=== PATIENT | male | born 1935 | race Caucasian/White ===

== ENCOUNTER 2016-12-23 11:22 | Observation (INO) | payer MEDICARE, OTHER ==
[2016-12-23] MEDS ORDERED: Sodium Chloride 0.9% 10 ML Syringe FLUSH PRN (12:10)
--- NOTE | 2016-12-23 12:15 | EDM.PDOC ---
ED HPI GENERAL MEDICAL PROBLEM - General Chief Complaint: Gastrointestinal Problem Stated Complaint: MEDICAL EVAL PRIOR TO GOING TO [facility] Time Seen by Provider: 12/23/16 11:48 Source of Information: Reports: Patient, Family (SonRyder) History Limitations: Reports: No Limitations - History of Present Illness INITIAL COMMENTS - FREE TEXT/NARRATIVE: Patient is a 81-year-old male who presents to the ED with son Ryder for medical evaluation prior to admission to [facility]. 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 Son states patient has-been doing okay able to perform his normal activities of daily living up until approximately 2 weeks ago. Patient has quickly developed a poor appetite and became more weaker, mildly confused, and forgetful during this time. Son has been in contact with [facility] but due to patient not having any recent medical evaluation requires the ED to be medically examined. Mey with licensed clinical social worker has been involved with this process. Patient most likely be admitted to the hospital for 3 days to arrange placement. Of note patient did undergo a few radiation treatments with the determination by oncology to discontinue due to the adverse side effects and unlikeliness of curing the disease. Patient denies fever/chills, chest pain , shortness of breath, abdominal pain, dysuria, headache, numbness/tingling, unilateral weakness, or any additional complaints. Per family patient has lost considerable weight over the last 4 months and has grown increasingly weaker. It is unclear if patient has taken all his medications. Past medical history: Coronary disease, CHF, hypercholesterolemia, hypertension , [place], cerebrovascular disease, COPD, polio, diabetes type 2, and AICD/pacemaker left chest, A. fib. Current medications pravastatin, baby aspirin, enalapril, warfarin, Norvasc, glipizide, oxycodone, metoprolol, stool softener - Related Data Allergies Allergy/AdvReac Type Severity Reaction Status Date / Time No Known Allergies Allergy Verified 12/23/16 11:37 Home Meds: Home Meds Aspirin [Halfprin] 81 mg PO DAILY 04/07/15 [History] Enalapril [Vasotec] 2.5 mg PO DAILY 04/07/15 [History] Hydrochlorothiazide 25 mg PO DAILY 04/07/15 [History] Metoprolol Tartrate [Lopressor] 50 mg PO DAILY 04/07/15 [History] Pravastatin [Pravachol] 20 mg PO DAILY 04/07/15 [History] amLODIPine [Norvasc] 5 mg PO DAILY 04/07/15 [History] glipiZIDE [Glipizide Xl] 10 mg PO DAILY 04/07/15 [History] Albuterol/Ipratropium [DuoNeb 3.0-0.5 MG/3 ML] 3 ml NEB QIDRT 30 Days 04/10/15 [ Rx] Past Medical History Cardiovascular History: Reports: CAD, Heart Failure, High Cholesterol, Hypertension, [place], Other (See Below) Other Cardiovascular History: defibrillator Respiratory History: Reports: COPD Other Musculoskeletal History: has brace to R) leg--result of polio Neurological History: Reports: Other (See Below) Endocrine/Metabolic History: Reports: Diabetes, Type II Oncologic (Cancer) History: Reports: Lung - Past Surgical History Cardiovascular Surgical History: Reports: AICD Social & Family History - Tobacco Use Smoking Status *Q: Former Smoker Years of Tobacco use: 15 Used Tobacco, but Quit: No Month Tobacco Last Used: 1990 - Caffeine Use Caffeine Use: Reports: None - Alcohol Use Days Per Week of Alcohol Use: 1 Number of Drinks Per Day: 2 Total Drinks Per Week: 2 - Recreational Drug Use Recreational Drug Use: No - Living Situation & Occupation Living situation: Reports: , Other Occupation: Disabled ED ROS GENERAL - Review of Systems Review Of Systems: ROS reveals no pertinent complaints other than HPI. GI/Abdominal: Denies: Black Stool, Bloody Stool, Constipation, Diarrhea, Melena ED EXAM, GENERAL - Physical Exam Exam: See Below Exam Limited By: No Limitations General Appearance: Alert, WD/WN, No Apparent Distress, Cachetic Eye Exam: Bilateral Eye: PERRL Ears: Hearing Grossly Normal Nose: Normal Inspection Throat/Mouth: Normal Voice, No Airway Compromise, Other (dry oral mucosa) Neck: Non-Tender, Full Range of Motion. No: Lymphadenopathy (L), Lymphadenopathy (R) Respiratory/Chest: Normal Breath Sounds, No Accessory Muscle Use, Chest Non- Tender, Rhonchi, Other (right base cleared with cough) Cardiovascular: Normal Peripheral Pulses, Regular Rate, Rhythm Peripheral Pulses: 2+: Radial (L) GI/Abdominal: Normal Bowel Sounds, Soft, Non-Tender, No Organomegaly, No Distention, No Mass Back Exam: Normal Inspection Extremities: Normal Inspection, Non-Tender, No Pedal Edema, Normal Capillary Refill Neurological: Alert, Oriented, CN II-XII Intact, Normal Cognition, No Motor/ Sensory Deficits Psychiatric: Normal Affect, Flat Affect Skin Exam: Warm, Dry, Intact, Pallor. No: No Rash Course - Vital Signs Last Recorded V/S: Last Vital Signs Temp 97.5 F 12/23/16 11:37 Pulse 90 12/23/16 11:37 Resp BP 115/60 12/23/16 11:37 Pulse Ox 97 12/23/16 11:37 - Orders/Labs/Meds Orders: Active Orders 24 hr Category Date Time Status EKG Documentation Completion [RC] STAT Care 12/23/16 12:19 Active Peripheral IV Care [RC] . DIRECTED Care 12/23/16 12:10 Active Sodium Chloride 0.9% [Normal Saline] 1,000 ml Med 12/23/16 13:45 Active IV ASDIRECTED Sodium Chloride 0.9% [Saline Flush] Med 12/23/16 12:10 Active 10 ml FLUSH ASDIRECTED PRN Peripheral IV Insertion Adult [OM.PC] Stat Oth 12/23/16 12:10 Ordered Medication Orders Albuterol/Ipratropium (Duoneb 3.0-0.5 Mg/3 Ml) 3 ml NEB QIDRT [facility] Amlodipine Besylate (Norvasc) 5 mg PO DAILY [facility] Aspirin (Halfprin) 81 mg PO DAILY [facility] Dextrose/Water (Dextrose 50% In Water) 50 ml IVPUSH ASDIRECTED PRN PRN Reason: Hypoglycemia Enalapril Maleate (Vasotec) 2.5 mg PO DAILY [facility] Hydrochlorothiazide (Hydrochlorothiazide) 25 mg PO DAILY [facility] Sodium Chloride (Normal Saline) 1,000 mls @ 50 mls/hr IV ASDIRECTED SAUL Last Admin: 12/23/16 13:51 Dose: 50 mls/hr Metoprolol Tartrate (Lopressor) 50 mg PO DAILY [facility] Non-Formulary Medication 1 Each ( Glipizide Xl 10 Mg) 10 mg PO DAILY [facility] Non-Formulary Medication (Pravastatin) 20 mg PO DAILY [facility] Sodium Chloride (Saline Flush) 10 ml FLUSH ASDIRECTED PRN PRN Reason: Keep Vein Open Last Admin: 12/23/16 12:39 Dose: 10 ml Temazepam (Restoril) 7.5 mg PO BEDTIME PRN PRN Reason: Insomnia Labs: Laboratory Tests 12/23/16 12/23/16 12/23/16 Range/Units 12:10 12:10 12:10 WBC 9.73 H (4.23-9.07) K/mm3 RBC 4.30 L (4.63-6.08) M/mm3 Hgb 13.8 (13.7-17.5) gm/L Hct 39.8 L (40.1-51.0) % MCV 92.6 H (79.0-92.2) fl MCH 32.1 (25.7-32.2) pg MCHC 34.7 (32.2-35.5) g/dl RDW Std Deviation 46.2 H (35.1-43.9) fL Plt Count 189 (163-337) K/mm3 MPV 9.2 L (9.4-12.3) fl Neut % (Auto) 73.5 H (34.0-67.9) % Lymph % (Auto) 14.1 L (21.8-53.1) % [place] % (Auto) 10.4 (5.3-12.2) % Eos % (Auto) 1.3 (0.8-7.0) Baso % (Auto) 0.2 (0.1-1.2) % Neut # (Auto) 7.15 H (1.78-5.38) K/mm3 Lymph # (Auto) 1.37 (1.32-3.57) K/mm3 [place] # (Auto) 1.01 H (0.30-0.82) K/mm3 Eos # (Auto) 0.13 (0.04-0.54) K/mm3 Baso # (Auto) 0.02 (0.01-0.08) K/mm3 PT 10.7 (8.0-13.0) SECONDS INR 0.98 Sodium 132 L (136-145) mEq/L Potassium 3.6 (3.5-5.1) mEq/L Chloride 96 L (98-107) mEq/L Carbon Dioxide 27 (21-32) mEq/L Anion Gap 12.6 (5-15) BUN 22 H (7-18) mg/dL Creatinine 1.3 (0.7-1.3) mg/dL Est Cr Clr Drug Dosing 40.71 mL/min Estimated GFR (MDRD) 53 (>60) mL/min BUN/Creatinine Ratio 16.9 (14-18) Glucose 179 H (83-115) mg/dL Calcium 9.1 (8.5-10.1) mg/dL Total Bilirubin 0.8 (0.2-1.0) mg/dL AST 24 (15-37) U/L ALT 30 (16-63) U/L Alkaline Phosphatase 65 (46-116) U/L Troponin I (0.00-0.056) ng/mL C-Reactive Protein 0.5 (<1.0) mg/dL Total Protein 7.4 (6.4-8.2) g/dl Albumin 3.2 L (3.4-5.0) g/dl Globulin 4.2 gm/dL Albumin/Globulin Ratio 0.8 L (1-2) // Range/Units 12:10 WBC (4.23-9.07) K/mm3 RBC (4.63-6.08) M/mm3 Hgb (13.7-17.5) gm/L Hct (40.1-51.0) % MCV (79.0-92.2) fl MCH (25.7-32.2) pg MCHC (32.2-35.5) g/dl RDW Std Deviation (35.1-43.9) fL Plt Count (163-337) K/mm3 MPV (9.4-12.3) fl Neut % (Auto) (34.0-67.9) % Lymph % (Auto) (21.8-53.1) % [place] % (Auto) (5.3-12.2) % Eos % (Auto) (0.8-7.0) Baso % (Auto) (0.1-1.2) % Neut # (Auto) (1.78-5.38) K/mm3 Lymph # (Auto) (1.32-3.57) K/mm3 [place] # (Auto) (0.30-0.82) K/mm3 Eos # (Auto) (0.04-0.54) K/mm3 Baso # (Auto) (0.01-0.08) K/mm3 PT (8.0-13.0) SECONDS INR Sodium (136-145) mEq/L Potassium (3.5-5.1) mEq/L Chloride (98-107) mEq/L Carbon Dioxide (21-32) mEq/L Anion Gap (5-15) BUN (7-18) mg/dL Creatinine (0.7-1.3) mg/dL Est Cr Clr Drug Dosing mL/min Estimated GFR (MDRD) (>60) mL/min BUN/Creatinine Ratio (14-18) Glucose (83-115) mg/dL Calcium (8.5-10.1) mg/dL Total Bilirubin (0.2-1.0) mg/dL AST (15-37) U/L ALT (16-63) U/L Alkaline Phosphatase (46-116) U/L Troponin I 0.026 (0.00-0.056) ng/mL C-Reactive Protein (<1.0) mg/dL Total Protein (6.4-8.2) g/dl Albumin (3.4-5.0) g/dl Globulin gm/dL Albumin/Globulin Ratio (1-2) Meds: Medications Generic Name Dose Route Start Last Admin Trade Name Freq PRN Reason Stop Dose Admin Albuterol/Ipratropium 3 ml 12/23/16 21:00 Duoneb 3.0-0.5 Mg/3 Ml NEB QIDRT SAUL Amlodipine Besylate 5 mg 12/24/16 09:00 Norvasc PO DAILY [facility] Aspirin 81 mg 12/24/16 09:00 Halfprin PO DAILY [facility] Dextrose/Water 50 ml 12/23/16 17:08 Dextrose 50% In Water IVPUSH ASDIRECTED PRN Hypoglycemia Enalapril Maleate 2.5 mg 12/24/16 09:00 Vasotec PO DAILY [facility] Hydrochlorothiazide 25 mg 12/24/16 09:00 Hydrochlorothiazide PO DAILY [facility] Sodium Chloride 1,000 mls @ 50 mls/hr 12/23/16 13:45 12/23/16 13:51 Normal Saline IV 50 mls/hr ASDIRECTED SAUL Administration Metoprolol Tartrate 50 mg 12/24/16 09:00 Lopressor PO DAILY [facility] Non-Formulary 10 mg 12/24/16 09:00 Medication 1 Each ( PO Glipizide Xl 10 Mg) DAILY [facility] Non-Formulary Medication 20 mg 12/24/16 09:00 Pravastatin PO DAILY [facility] Sodium Chloride 10 ml 12/23/16 12:10 12/23/16 12:39 Saline Flush FLUSH 10 ml ASDIRECTED PRN Administration Keep Vein Open Temazepam 7.5 mg 12/23/16 21:00 Restoril PO BEDTIME PRN Insomnia - Re-Assessments/Exams Free Text/Narrative Re-Assessment/Exam: Will obtain a peripheral IV. Initial labs and studies include CBC, chem 14, CRP , chest x-ray two-view, urine drug tox screen, PTT/INR, and UA. Patient has had no recent falls. He is alert and oriented 3 here in the ED. No findings on examination suggest otherwise. No CT of the head will be obtained. Public Administration Teacher has confirmed patient will be comfort measures only. EKG: Sinus Rhythm rate of 82, LBBB present. No significant change from 2016. CXR: AICD biventricular device in place. No acute findings noted. Reviewed with Dr. Lazarus Brenner. Labs reviewed: White blood cell count 9.73, hemoglobin is 13.8, platelets 189, neutrophil percentage is 73.5, neutrophil number is 7.15, INR 0.98, sodium 132, potassium 3.6, chloride is 96, INR gap is 12.6, creatinine is 1.3, glucose 179, albumin 3.2, albumin/globulin ratio 0.8. Per MCG patient only meets observation status. Patient still unable to urinate. [address] Palm, [facility] licensed clinical social worker is coming over to discuss options for admission. Will obtain in and out cath for UA sample. 12/23/16 15:40 Unable to obtain UA with in/out straight cath. Admitted to Observation Med/Surg. Departure - Departure Time of Disposition: 15:41 Disposition: Refer to Observation Condition: Good Clinical Impression: Failure to thrive in adult, Malnutrition - Discharge Information - My Orders Last 24 Hours: My Active Orders 12/23/16 12:10 Peripheral IV Care [RC] . DIRECTED Sodium Chloride 0.9% [Saline Flush] 10 ml FLUSH ASDIRECTED PRN Peripheral IV Insertion Adult [OM.PC] Stat 12/23/16 12:19 EKG Documentation Completion [RC] STAT 12/23/16 13:45 Sodium Chloride 0.9% [Normal Saline] 1,000 ml IV ASDIRECTED - Assessment/Plan Last 24 Hours: My Active Orders 12/23/16 12:10 Peripheral IV Care [RC] . DIRECTED Sodium Chloride 0.9% [Saline Flush] 10 ml FLUSH ASDIRECTED PRN Peripheral IV Insertion Adult [OM.PC] Stat 12/23/16 12:19 EKG Documentation Completion [RC] STAT 12/23/16 13:45 Sodium Chloride 0.9% [Normal Saline] 1,000 ml IV ASDIRECTED
[2016-12-23] MEDS: Sodium Chloride 0.9% 1,000 ML IV SCH (13:51)
--- NOTE | 2016-12-23 14:24 | CR ---
Chest: Two views of the chest were obtained. Comparison: Previous chest x-ray of 08/06/16. Nodular density is seen within the left base. This is not identified on prior study with certainty and most likely is artifact. Lungs otherwise are clear. Heart size and mediastinum are normal. AICD is noted. Bony structures are within normal limits for the patient's age. Soft tissue fullness within the azygos node seen on previous study appears stable on current chest x-ray. Impression: 1. Incidental findings. Nothing acute is identified on two-view chest x-ray. Diagnostic code #2
--- NOTE | 2016-12-23 17:04 | PCM.HP ---
H&P History of Present Illness - General Date of Service: 12/23/16 Admit Problem/Dx: Admission Diagnosis/Problem Admission Diagnosis/Problem Failure to thrive in adult Source of Information: Provider History Limitations: Reports: No Limitations - History of Present Illness Initial Comments - Free Text/Narative: 81 year old male with PMH of stage IV lung CA with mets to the brain. The patient had been living at home, and now requires more care that is not available with current family dynamics. Thus his son is acting on his behalf to facilitate placement in a SNF. A SW consult was completed before admission. PT/OT will be ordered and completed before DC. An observation with tele has been ordered. Onset of Symptoms: Reports: Unknown/Unsure Duration of Symptoms: Reports: Week(s):, Chronic, Getting Worse Location: Reports: Generalized Quality: Reports: Same as Previous Episode Improves with: Reports: Medication Worsens with: Reports: None Associated Symptoms: Reports: Confusion, Loss of Appetite, Weakness Back Pain Score (Numeric/FACES): 10 - Related Data Allergies/Adverse Reactions: Allergies Allergy/AdvReac Type Severity Reaction Status Date / Time No Known Allergies Allergy Verified 12/23/16 11:37 Home Medications: Home Meds Aspirin [Halfprin] 81 mg PO DAILY 04/07/15 [History] Enalapril [Vasotec] 2.5 mg PO DAILY 04/07/15 [History] Hydrochlorothiazide 25 mg PO DAILY 04/07/15 [History] Metoprolol Tartrate [Lopressor] 50 mg PO BID 04/07/15 [History] Pravastatin [Pravachol] 10 mg PO DAILY 04/07/15 [History] amLODIPine [Norvasc] 5 mg PO DAILY 04/07/15 [History] Albuterol/Ipratropium [DuoNeb 3.0-0.5 MG/3 ML] 3 ml NEB QIDRT 30 Days 04/10/15 [ Rx] Sennosides/Docusate Sodium [Jessica-Colace] 1 tab PO DAILY 12/23/16 [History] oxyCODONE HCl [Oxycodone HCl] 10 mg PO TID PRN 12/23/16 [History] glipiZIDE [Glucotrol] 10 mg PO TID 12/24/16 [History] Past Medical History Cardiovascular History: Reports: CAD, Heart Failure, High Cholesterol, Hypertension, [place], Other (See Below) Other Cardiovascular History: defibrillator Respiratory History: Reports: COPD Other Musculoskeletal History: has brace to R) leg--result of polio Neurological History: Reports: Other (See Below) Endocrine/Metabolic History: Reports: Diabetes, Type II Oncologic (Cancer) History: Reports: Lung - Past Surgical History Cardiovascular Surgical History: Reports: AICD Social & Family History - Tobacco Use Smoking Status *Q: Former Smoker Years of Tobacco use: 15 Used Tobacco, but Quit: No Month Tobacco Last Used: 1990 - Caffeine Use Caffeine Use: Reports: None - Alcohol Use Days Per Week of Alcohol Use: 1 Number of Drinks Per Day: 2 Total Drinks Per Week: 2 - Recreational Drug Use Recreational Drug Use: No - Living Situation & Occupation Living situation: Reports: , Other Occupation: Disabled H&P Review of Systems - Review of Systems: Review Of Systems: See Below General: Reports: Weakness HEENT: Reports: No Symptoms Pulmonary: Reports: No Symptoms Cardiovascular: Reports: No Symptoms Gastrointestinal: Reports: No Symptoms Genitourinary: Reports: No Symptoms Musculoskeletal: Reports: No Symptoms Skin: Reports: No Symptoms Psychiatric: Reports: Confusion Neurological: Reports: No Symptoms Hematologic/Lymphatic: Reports: No Symptoms Immunologic: Reports: No Symptoms Exam - Exam Exam: See Below - Vital Signs Vital Signs: Last Vital Signs Temp 36.4 C 12/23/16 11:37 Pulse 90 12/23/16 11:37 Resp BP 115/60 12/23/16 11:37 Pulse Ox 97 12/23/16 11:37 Weight: 63.503 kg - Exam Quality Assessment: Supplemental Oxygen HEENT: Nares Patent, Normal Nasal Septum, Pupils Equal, Pupils Reactive, PERRLA Neck: Supple, Trachea Midline Lungs: Normal Respiratory Effort Cardiovascular: Regular Rate Abdomen: Normal Bowel Sounds, Soft (Male) Exam: Deferred Rectal (Males) Exam: Deferred Back Exam: Normal Inspection Extremities: Normal Pulses Neurological: Cranial Nerves Intact, Normal Speech Neuro Extensive - Mental Status: Alert, Normal Mood/Affect, Normal Cognition, Memory Intact Neuro Extensive - Motor, Sensory, Reflexes: CN II-XII Intact Psychiatric: Alert, Normal Affect, Normal Mood - Patient Data Lab Results Last 24 hrs: Laboratory Results - last 24 hr 12/23/16 12/23/16 Range/Units 15:53 15:53 Urine Color Yellow (Yellow) Urine Appearance Clear (Clear) Urine pH 6.0 (5.0-8.0) Ur Specific [place] 1.025 (1.005-1.030) Urine Protein 1+ H (Negative) Urine Glucose (UA) Negative (Negative) Urine Ketones Trace H (Negative) Urine Occult Blood Trace-intact H (Negative) Urine Nitrite Negative (Negative) Urine Bilirubin 1+ H (Negative) Urine Urobilinogen 0.2 (0.2-1.0) Ur Leukocyte Esterase Negative (Negative) Urine RBC 10-20 H (0-5) /hpf Urine WBC 0-5 (0-5) /hpf Ur Epithelial Cells 0-5 (0-5) /hpf Urine Bacteria Few (FEW) /hpf Urine Mucus Few (FEW) /hpf Urine Opiates Screen Negative (NEGATIVE) Ur Buprenorphine Scrn Negative (NEGATIVE) Ur Oxycodone Screen Negative (NEGATIVE) Urine Methadone Screen Negative (NEGATIVE) Ur Propoxyphene Screen Negative (NEGATIVE) Ur Barbiturates Screen Negative (NEGATIVE) Ur Tricyclics Screen Negative (NEGATIVE) Ur Phencyclidine Scrn Negative (NEGATIVE) Ur Amphetamine Screen Negative (NEGATIVE) U Methamphetamines Scrn Negative (NEGATIVE) U Benzodiazepines Scrn Negative (NEGATIVE) U Cocaine Metab Screen Negative (NEGATIVE) U Marijuana (THC) Screen Negative (NEGATIVE) Result Diagrams: 12/23/16 12:10 12/23/16 12:10 *Q Meaningful Use (ADM) - VTE *Q VTE Criteria *Q: - Stroke *Q Stroke Criteria *Q: - AMI *Q AMI Criteria *Q: - Problem List (1) Lung cancer, primary, 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 SNOMED Code(s): 173869619, 110883960 ICD Code: C34.90 - MALIGNANT NEOPLASM OF UNSP PART OF UNSP BRONCHUS OR LUNG Status: Acute Current Visit: Yes (2) Failure to thrive in adult SNOMED Code(s): 057099005 ICD Code: R62.7 - ADULT FAILURE TO THRIVE Status: Acute Current Visit: Yes (3) Malnutrition SNOMED Code(s): 0429481 ICD Code: E46 - UNSPECIFIED PROTEIN-CALORIE MALNUTRITION Status: Acute Current Visit: Yes Problem List Initiated/Reviewed/Updated: Yes Orders Last 24hrs: Medication Orders Sodium Chloride (Normal Saline) 1,000 mls @ 50 mls/hr IV ASDIRECTED SAUL Last Admin: 12/23/16 13:51 Dose: 50 mls/hr Sodium Chloride (Saline Flush) 10 ml FLUSH ASDIRECTED PRN PRN Reason: Keep Vein Open Last Admin: 12/23/16 12:39 Dose: 10 ml Assessment/Plan Comment:: Impression: DNR/DNI, comfort care for Lung CA, stage IV Failure to thrive Chronic CAD COPD CHF Hyperlipidemia Diabetes mellitus, type II Plan: SNF placement Obs with tele Home Meds BS checks SW/PT/OT pre transfer to SNF DVT/GI prophylaxis
[2016-12-23] MEDS ORDERED: 50% Dextrose in Water 50 ML Syringe IVPUSH PRN (17:08)
[2016-12-23] MEDS ORDERED: HYDROmorphone 1 MG/ML Syringe IVPUSH PRN (18:49)
[2016-12-23] MEDS ORDERED: Ondansetron 4 MG/2 ML SDV IVPUSH PRN (18:50)
[2016-12-23] MEDS ORDERED: Temazepam 7.5 MG Cap PO PRN (21:00)
[2016-12-23] MEDS: Albuterol/Ipratropium 3.0-0.5 MG/3 ML Neb Soln NEB SCH (21:21)
[2016-12-24] MEDS: Albuterol/Ipratropium 3.0-0.5 MG/3 ML Neb Soln NEB SCH ×4 (06:10→21:01)
[2016-12-24] MEDS ORDERED: GLIPIZIDE 10 MG PO SCH (09:00)
[2016-12-24] MEDS: Aspirin 81 MG Tab.EC*PT OWN MED PO SCH (10:29)
[2016-12-24] MEDS: HYDROCHLOROTHIAZIDE 25 MG PO SCH (10:29)
[2016-12-24] MEDS: AMLODIPINE 5 MG PO SCH (10:31)
[2016-12-24] MEDS: SENNOSIDES PO SCH (10:32)
[2016-12-24] MEDS: DOCUSATE SODIUM PO SCH (10:32)
[2016-12-24] MEDS: ENALAPRIL 2.5 MG PO SCH (10:33)
[2016-12-24] MEDS: Sodium Chloride 0.9% 1,000 ML IV SCH (10:36)
--- NOTE | 2016-12-24 13:33 | PCM.PN ---
- General Info Date of Service: 12/24/16 Functional Status: Reports: pain controlled, tolerating diet, urinating - Review of Systems General: Reports: No Symptoms HEENT: Reports: no symptoms Pulmonary: Reports: no symptoms Cardiovascular: Reports: No Symptoms Gastrointestinal: Reports: No symptoms Genitourinary: Reports: no symptoms Musculoskeletal: Reports: no symptoms Skin: Reports: no symptoms Neurological: Reports: No Symptoms Psychiatric: Reports: no symptoms - Patient Data Vitals - most recent: Last Vital Signs Temp 36.9 C 12/24/16 10:36 Pulse 109 H 12/24/16 10:38 Resp 16 12/24/16 10:36 BP 110/52 L 12/24/16 10:38 Pulse Ox 91 L 12/24/16 10:36 Weight - most recent: 63.503 kg I&O - last 24 hours: Intake & Output 12/23/16 12/24/16 12/24/16 22:59 06:59 14:59 Intake Total 100 788 Output Total 250 500 Balance -150 288 Lab Results last 24 hrs: Laboratory Results - last 24 hr 12/23/16 12/23/16 12/23/16 Range/Units 15:53 15:53 17:33 POC Glucose 129 H (83-110) mg/dL Urine Color Yellow (Yellow) Urine Appearance Clear (Clear) Urine pH 6.0 (5.0-8.0) Ur Specific [place] 1.025 (1.005-1.030) Urine Protein 1+ H (Negative) Urine Glucose (UA) Negative (Negative) Urine Ketones Trace H (Negative) Urine Occult Blood Trace-intact H (Negative) Urine Nitrite Negative (Negative) Urine Bilirubin 1+ H (Negative) Urine Urobilinogen 0.2 (0.2-1.0) Ur Leukocyte Esterase Negative (Negative) Urine RBC 10-20 H (0-5) /hpf Urine WBC 0-5 (0-5) /hpf Ur Epithelial Cells 0-5 (0-5) /hpf Urine Bacteria Few (FEW) /hpf Urine Mucus Few (FEW) /hpf Urine Opiates Screen Negative (NEGATIVE) Ur Buprenorphine Scrn Negative (NEGATIVE) Ur Oxycodone Screen Negative (NEGATIVE) Urine Methadone Screen Negative (NEGATIVE) Ur Propoxyphene Screen Negative (NEGATIVE) Ur Barbiturates Screen Negative (NEGATIVE) Ur Tricyclics Screen Negative (NEGATIVE) Ur Phencyclidine Scrn Negative (NEGATIVE) Ur Amphetamine Screen Negative (NEGATIVE) U Methamphetamines Scrn Negative (NEGATIVE) U Benzodiazepines Scrn Negative (NEGATIVE) U Cocaine Metab Screen Negative (NEGATIVE) U Marijuana (THC) Screen Negative (NEGATIVE) 12/24/16 Range/Units 06:51 POC Glucose 155 H (83-110) mg/dL Urine Color (Yellow) Urine Appearance (Clear) Urine pH (5.0-8.0) Ur Specific [place] (1.005-1.030) Urine Protein (Negative) Urine Glucose (UA) (Negative) Urine Ketones (Negative) Urine Occult Blood (Negative) Urine Nitrite (Negative) Urine Bilirubin (Negative) Urine Urobilinogen (0.2-1.0) Ur Leukocyte Esterase (Negative) Urine RBC (0-5) /hpf Urine WBC (0-5) /hpf Ur Epithelial Cells (0-5) /hpf Urine Bacteria (FEW) /hpf Urine Mucus (FEW) /hpf Urine Opiates Screen (NEGATIVE) Ur Buprenorphine Scrn (NEGATIVE) Ur Oxycodone Screen (NEGATIVE) Urine Methadone Screen (NEGATIVE) Ur Propoxyphene Screen (NEGATIVE) Ur Barbiturates Screen (NEGATIVE) Ur Tricyclics Screen (NEGATIVE) Ur Phencyclidine Scrn (NEGATIVE) Ur Amphetamine Screen (NEGATIVE) U Methamphetamines Scrn (NEGATIVE) U Benzodiazepines Scrn (NEGATIVE) U Cocaine Metab Screen (NEGATIVE) U Marijuana (THC) Screen (NEGATIVE) Med Orders - Current: Current Medications Albuterol/Ipratropium (Duoneb 3.0-0.5 Mg/3 Ml) 3 ml NEB QIDRT [facility] Last Admin: 12/24/16 09:49 Dose: 3 ml Amlodipine Besylate (Norvasc) 5 mg PO DAILY [facility] Last Admin: 12/24/16 10:31 Dose: 5 mg Aspirin (Halfprin) 81 mg PO DAILY [facility] Last Admin: 12/24/16 10:29 Dose: 81 mg Dextrose/Water (Dextrose 50% In Water) 50 ml IVPUSH ASDIRECTED PRN PRN Reason: Hypoglycemia Enalapril Maleate (Vasotec) 2.5 mg PO DAILY [facility] Last Admin: 12/24/16 10:33 Dose: 2.5 mg Glipizide (Glucotrol) 10 mg PO TID [facility] Last Admin: 12/24/16 10:28 Dose: 10 mg Hydrochlorothiazide (Hydrochlorothiazide) 25 mg PO DAILY [facility] Last Admin: 12/24/16 10:29 Dose: 25 mg Hydromorphone HCl (Dilaudid) 1 mg IVPUSH Q4H PRN PRN Reason: Pain (moderate 4-6) Last Admin: 12/23/16 20:54 Dose: 1 mg Sodium Chloride (Normal Saline) 1,000 mls @ 50 mls/hr IV ASDIRECTED [facility] Last Admin: 12/24/16 10:36 Dose: 50 mls/hr Metoprolol Tartrate (Lopressor) 50 mg PO BID [facility] Last Admin: 12/24/16 10:38 Dose: 50 mg (Pravastatin 20 Mg (Tab)*Pt Own Med*) 10 mg PO BEDTIME [facility] Ondansetron HCl (Zofran) 4 mg IVPUSH Q8H PRN PRN Reason: Nausea/Vomiting Oxycodone HCl (Oxycodone) 10 mg PO TID PRN PRN Reason: PAIN Senna/Docusate Sodium (Senna Plus) 1 tab PO DAILY [facility] Last Admin: 12/24/16 10:32 Dose: Not Given Sodium Chloride (Saline Flush) 10 ml FLUSH ASDIRECTED PRN PRN Reason: Keep Vein Open Last Admin: 12/23/16 12:39 Dose: 10 ml Temazepam (Restoril) 7.5 mg PO BEDTIME PRN PRN Reason: Insomnia Discontinued Medications Metoprolol Tartrate (Lopressor) 50 mg PO DAILY [facility] (Pravastatin 20 Mg)* (Pt Own Med*) 20 mg PO BEDTIME [facility] - Exam Quality Assessment: DVT prophylaxis General: alert, oriented, cooperative, no acute distress HEENT: Pupils equal, Pupils reactive, EOMI Neck: supple, trachea midline Lungs: Normal respiratory effort Cardiovascular: Regular Rate Abdomen: bowel sounds present, soft, no tenderness, no distension (Male) Exam: Deferred Back Exam: Normal Inspection Extremities: normal pulses Skin: warm Neurological: no new focal deficit, normal speech Psy/Mental Status: alert, normal affect, normal mood - Problem List & Annotations (1) Lung cancer, primary, 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 SNOMED Code(s): 416513298, 196953043 Code(s): C34.90 - MALIGNANT NEOPLASM OF UNSP PART OF UNSP BRONCHUS OR LUNG Status: Acute Current Visit: Yes (2) Failure to thrive in adult SNOMED Code(s): 893580788 Code(s): R62.7 - ADULT FAILURE TO THRIVE Status: Acute Current Visit: Yes (3) Malnutrition SNOMED Code(s): 2201031 Code(s): E46 - UNSPECIFIED PROTEIN-CALORIE MALNUTRITION Status: Acute Current Visit: Yes - Problem List Review Problem List Initiated/Reviewed/Updated: Yes - My Orders Last 24 Hours: My Active Orders 12/23/16 17:05 Code Status [Resuscitation Status] Routine 12/23/16 17:06 Vital Signs [RC] 08,20 12/23/16 17:07 Activity as Tolerated [RC] .Routine 12/23/16 17:08 Accu Check [Blood Glucose Check, Bedside] [RC] QIDACANDBED Dextrose 50% in Water 50 ml IVPUSH ASDIRECTED PRN 12/23/16 18:49 HYDROmorphone [Dilaudid] 1 mg IVPUSH Q4H PRN 12/23/16 18:50 Ondansetron [Zofran] 4 mg IVPUSH Q8H PRN 12/23/16 19:00 oxyCODONE 10 mg PO TID PRN 12/23/16 21:00 Albuterol/Ipratropium [DuoNeb 3.0-0.5 MG/3 ML] 3 ml NEB QIDRT Temazepam [Restoril] 7.5 mg PO BEDTIME PRN 12/23/16 Dinner [employer] Diet [DIET] 12/24/16 09:00 Aspirin [Halfprin] 81 mg PO DAILY Docusate Sodium/Sennosides [Senna Plus] 1 tab PO DAILY Enalapril [Vasotec] 2.5 mg PO DAILY Hydrochlorothiazide 25 mg PO DAILY Metoprolol Tartrate [Lopressor] 50 mg PO BID amLODIPine [Norvasc] 5 mg PO DAILY glipiZIDE [Glucotrol] 10 mg PO TID 12/24/16 21:00 Pravastatin 10 mg PO BEDTIME 12/26/16 08:00 Consult to Occupational Therapy [OT Evaluation and Treatment] [CONS] Routine 12/26/16 09:00 Consult to Physical Therapy [PT Evaluation and Treatment] [CONS] Routine - Plan Plan:: Impression: DNR/DNI, comfort care for Lung CA, stage IV Failure to thrive Chronic CAD COPD CHF Hyperlipidemia Diabetes mellitus, type II Plan: SNF placement Obs with tele Home Meds BS checks SW/PT/OT pre transfer to SNF DVT/GI prophylaxis
[2016-12-24] MEDS: oxyCODONE 5 MG Tab PO PRN (17:56)
[2016-12-24] MEDS ORDERED: Loperamide 2 MG Cap PO ONE (18:08)
[2016-12-24] MEDS ORDERED: Loperamide 2 MG Cap PO PRN (18:20)
[2016-12-25] MEDS: Albuterol/Ipratropium 3.0-0.5 MG/3 ML Neb Soln NEB SCH ×4 (05:51→21:41)
[2016-12-25] MEDS: oxyCODONE 5 MG Tab PO PRN ×2 (06:09→17:09)
[2016-12-25] MEDS: Sodium Chloride 0.9% 1,000 ML IV SCH (07:05)
--- NOTE | 2016-12-25 08:52 | PCM.PN ---
- General Info Date of Service: 12/25/16 Functional Status: Reports: pain controlled, tolerating diet, ambulating, urinating - Review of Systems General: Reports: No Symptoms HEENT: Reports: no symptoms Pulmonary: Reports: no symptoms Cardiovascular: Reports: No Symptoms Gastrointestinal: Reports: No symptoms Genitourinary: Reports: no symptoms Musculoskeletal: Reports: no symptoms Skin: Reports: no symptoms Neurological: Reports: No Symptoms Psychiatric: Reports: no symptoms - Patient Data Vitals - most recent: Last Vital Signs Temp 37.1 C 12/25/16 08:20 Pulse 82 12/25/16 08:20 Resp 20 12/25/16 08:20 BP 99/45 L 12/25/16 08:20 Pulse Ox 93 L 12/25/16 08:20 Weight - most recent: 63.503 kg I&O - last 24 hours: Intake & Output 12/24/16 12/25/16 12/25/16 22:59 06:59 14:59 Intake Total 1040 400 Output Total 1000 450 Balance 40 -50 Lab Results last 24 hrs: Laboratory Results - last 24 hr 12/24/16 12/24/16 12/25/16 Range/Units 18:16 20:13 07:31 POC Glucose 258 H 198 H (83-110) mg/dL C.difficile [id number] Presumptive negative C. difficile Tox (PCR) Negative Med Orders - Current: Current Medications Albuterol/Ipratropium (Duoneb 3.0-0.5 Mg/3 Ml) 3 ml NEB QIDRT [facility] Last Admin: 12/25/16 05:51 Dose: 3 ml Amlodipine Besylate (Norvasc) 5 mg PO DAILY [facility] Last Admin: 12/24/16 10:31 Dose: 5 mg Aspirin (Halfprin) 81 mg PO DAILY [facility] Last Admin: 12/24/16 10:29 Dose: 81 mg Dextrose/Water (Dextrose 50% In Water) 50 ml IVPUSH ASDIRECTED PRN PRN Reason: Hypoglycemia Enalapril Maleate (Vasotec) 2.5 mg PO DAILY [facility] Last Admin: 12/24/16 10:33 Dose: 2.5 mg Glipizide (Glucotrol) 10 mg PO TID [facility] Last Admin: 12/24/16 20:14 Dose: 10 mg Hydrochlorothiazide (Hydrochlorothiazide) 25 mg PO DAILY [facility] Last Admin: 12/24/16 10:29 Dose: 25 mg Hydromorphone HCl (Dilaudid) 1 mg IVPUSH Q4H PRN PRN Reason: Pain (moderate 4-6) Last Admin: 12/23/16 20:54 Dose: 1 mg Sodium Chloride (Normal Saline) 1,000 mls @ 50 mls/hr IV ASDIRECTED [facility] Last Admin: 12/24/16 10:36 Dose: 50 mls/hr Loperamide HCl (Imodium) 2 mg PO Q4H PRN PRN Reason: diarrhea Metoprolol Tartrate (Lopressor) 50 mg PO BID [facility] Last Admin: 12/24/16 20:14 Dose: 50 mg (Pravastatin 20 Mg (Tab)*Pt Own Med*) 10 mg PO BEDTIME [facility] Last Admin: 12/24/16 20:16 Dose: 10 mg Ondansetron HCl (Zofran) 4 mg IVPUSH Q8H PRN PRN Reason: Nausea/Vomiting Oxycodone HCl (Oxycodone) 10 mg PO TID PRN PRN Reason: PAIN Last Admin: 12/25/16 06:09 Dose: 10 mg Senna/Docusate Sodium (Senna Plus) 1 tab PO DAILY [facility] Last Admin: 12/24/16 10:32 Dose: Not Given Sodium Chloride (Saline Flush) 10 ml FLUSH ASDIRECTED PRN PRN Reason: Keep Vein Open Last Admin: 12/23/16 12:39 Dose: 10 ml Temazepam (Restoril) 7.5 mg PO BEDTIME PRN PRN Reason: Insomnia Discontinued Medications Loperamide HCl (Imodium) 4 mg PO NOW ONE Stop: 12/24/16 18:09 Last Admin: 12/24/16 18:28 Dose: 4 mg Loperamide HCl (Imodium) 2 mg PO Q4H PRN PRN Reason: Diarrhea Metoprolol Tartrate (Lopressor) 50 mg PO DAILY [facility] (Pravastatin 20 Mg)* (Pt Own Med*) 20 mg PO BEDTIME [facility] - Exam Quality Assessment: DVT prophylaxis General: alert, oriented, cooperative, no acute distress HEENT: Pupils equal, Pupils reactive Neck: supple, trachea midline Lungs: Normal respiratory effort Cardiovascular: Regular Rate Abdomen: bowel sounds present, soft, no tenderness, no distension (Male) Exam: Deferred Back Exam: Normal Inspection Extremities: no edema, normal pulses Wound/Incisions: healing well Neurological: no new focal deficit Psy/Mental Status: alert, normal affect, normal mood - Problem List & Annotations (1) Lung cancer, primary, 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 SNOMED Code(s): 029362292, 028888183 Code(s): C34.90 - MALIGNANT NEOPLASM OF UNSP PART OF UNSP BRONCHUS OR LUNG Status: Acute Current Visit: Yes (2) Failure to thrive in adult SNOMED Code(s): 054142678 Code(s): R62.7 - ADULT FAILURE TO THRIVE Status: Acute Current Visit: Yes (3) Malnutrition SNOMED Code(s): 8529940 Code(s): E46 - UNSPECIFIED PROTEIN-CALORIE MALNUTRITION Status: Acute Current Visit: Yes (4) Diarrhea SNOMED Code(s): 47465885 Code(s): R19.7 - DIARRHEA, UNSPECIFIED Status: Resolved Current Visit: Yes - Problem List Review Problem List Initiated/Reviewed/Updated: Yes - My Orders Last 24 Hours: My Active Orders 12/24/16 09:00 Aspirin [Halfprin] 81 mg PO DAILY Docusate Sodium/Sennosides [Senna Plus] 1 tab PO DAILY Enalapril [Vasotec] 2.5 mg PO DAILY Hydrochlorothiazide 25 mg PO DAILY Metoprolol Tartrate [Lopressor] 50 mg PO BID amLODIPine [Norvasc] 5 mg PO DAILY glipiZIDE [Glucotrol] 10 mg PO TID 12/24/16 18:19 Loperamide [Imodium] 2 mg PO Q4H PRN 12/24/16 19:00 Bladder Scan [RC] QSHIFT Communication Order [RC] PRN 12/24/16 21:00 Pravastatin 10 mg PO BEDTIME 12/26/16 08:00 Consult to Occupational Therapy [OT Evaluation and Treatment] [CONS] Routine 12/26/16 09:00 Consult to Physical Therapy [PT Evaluation and Treatment] [CONS] Routine - Plan Plan:: Impression: DNR/DNI, comfort care for Lung CA, stage IV Failure to thrive Chronic CAD COPD CHF Hyperlipidemia Diabetes mellitus, type II Plan: SNF placement Obs with tele Home Meds BS checks SW/PT/OT pre transfer to SNF DVT/GI prophylaxis
[2016-12-25] MEDS: Aspirin 81 MG Tab.EC*PT OWN MED PO SCH (10:08)
[2016-12-25] MEDS: HYDROCHLOROTHIAZIDE 25 MG PO SCH (10:09)
[2016-12-25] MEDS: AMLODIPINE 5 MG PO SCH (10:10)
[2016-12-25] MEDS: SENNOSIDES PO SCH (10:11)
[2016-12-25] MEDS: ENALAPRIL 2.5 MG PO SCH (10:11)
[2016-12-25] MEDS: DOCUSATE SODIUM PO SCH (10:11)
[2016-12-25] MEDS: Megestrol Susp 40 MG/ML 10 ML UD Cup PO SCH (13:29)
[2016-12-25] MEDS: Loperamide 2 MG Cap PO PRN ×2 (15:13→21:05)
[2016-12-25] MEDS: Tamsulosin 0.4 MG Cap.ER PO SCH (18:00)
[2016-12-25] MEDS ORDERED: Benzocaine/Cetylpyridinium/Menthol Lozenge MUCMEM PRN (19:58)
[2016-12-25] MEDS ORDERED: Lidocaine 2% Jelly 10 ML Urojet MUCMEM ONE (20:19)
[2016-12-25] MEDS ORDERED: Lidocaine 2% Jelly 10 ML Urojet ONE (20:26)
[2016-12-25] MEDS ORDERED: ENALAPRIL 2.5 MG PO SCH (21:00)
[2016-12-25] MEDS: Insulin Aspart 100 Units/ML 3 ML Pen SUBCUT SCH (22:43)
[2016-12-26] MEDS: oxyCODONE 5 MG Tab PO PRN (02:58)
[2016-12-26] MEDS: Albuterol/Ipratropium 3.0-0.5 MG/3 ML Neb Soln NEB SCH ×4 (06:30→20:43)
[2016-12-26] MEDS ORDERED: Insulin Aspart 100 Units/ML 3 ML Pen SUBCUT SCH (07:00)
[2016-12-26] MEDS: Insulin Aspart 100 Units/ML 3 ML Pen SUBCUT SCH ×4 (07:46→16:22)
[2016-12-26] MEDS: Aspirin 81 MG Tab.EC*PT OWN MED PO SCH (10:21)
[2016-12-26] MEDS: Tamsulosin 0.4 MG Cap.ER PO SCH ×2 (10:21→17:00)
[2016-12-26] MEDS: HYDROCHLOROTHIAZIDE 25 MG PO SCH (10:21)
[2016-12-26] MEDS: Megestrol Susp 40 MG/ML 10 ML UD Cup PO SCH (10:22)
[2016-12-26] MEDS: AMLODIPINE 5 MG PO SCH (10:22)
[2016-12-26] MEDS ORDERED: fentaNYL 12 MCG/HR Transdermal Patch TRDERM SCH (11:30)
--- NOTE | 2016-12-26 12:20 | PCM.PN ---
<Miley Wong M - Last Filed: 12/26/16 12:13> - General Info Date of Service: 12/26/16 Admission Dx/Problem (Free Text): Admission Diagnosis/Problem Admission Diagnosis/Problem Failure to thrive in adult Patient seen this morning with team rounding. Mental status continues to decline; minimally responsive this morning but does appear to be in pain. Family/son is concerned about pain control. Discussed options as no longer has IV as has been pulled out by patient and he refused restart during time of lucid mental status. He was also refusing straight cath for urinary retention. Family/son aware of this and are in agreement to keep patient comfortable at this time. Functional Status: Reports: urinating (with retention noted per bladder scan). Denies: ambulating - Review of Systems General: Reports: Weakness. Denies: Fever, Appetite Systems Review Comment:: difficult and unable to obtain as patient mental status declining; not able to verbalize pain or other concerns. Opens eyes to commands only. - Patient Data Vitals - most recent: Last Vital Signs Temp 97.5 F 12/26/16 07:47 Pulse 161 H 12/26/16 07:47 Resp 14 12/26/16 07:47 BP 118/87 12/26/16 07:47 Pulse Ox 87 L 12/26/16 09:36 Weight - most recent: 62.278 kg I&O - last 24 hours: Intake & Output 12/25/16 12/26/16 12/26/16 22:59 06:59 14:59 Intake Total 970 75 0 Output Total 375 275 Balance 595 -200 0 Lab Results last 24 hrs: Laboratory Results - last 24 hr 12/25/16 12/26/16 Range/Units 20:59 06:54 POC Glucose 399 H 185 H (83-110) mg/dL Med Orders - Current: Current Medications Albuterol/Ipratropium (Duoneb 3.0-0.5 Mg/3 Ml) 3 ml NEB QIDRT [facility] Last Admin: 12/26/16 09:36 Dose: 3 ml Amlodipine Besylate (Norvasc) 5 mg PO DAILY [facility] Last Admin: 12/26/16 10:22 Dose: Not Given Aspirin (Halfprin) 81 mg PO DAILY [facility] Last Admin: 12/26/16 10:21 Dose: Not Given Benzocaine/Menthol (Cepacol Sore Throat) 1 lozenge MUCMEM Q2HR PRN PRN Reason: Sore Throat Dextrose/Water (Dextrose 50% In Water) 50 ml IVPUSH ASDIRECTED PRN PRN Reason: Hypoglycemia Enalapril Maleate (Vasotec) 2.5 mg PO DAILY@2100 [facility] Last Admin: 12/25/16 21:05 Dose: Not Given Fentanyl (Duragesic) 12 mcg TRDERM Q72H [facility] Last Admin: 12/26/16 11:34 Dose: 12 mcg Glipizide (Glucotrol) 10 mg PO TIDAC [facility] Last Admin: 12/26/16 10:41 Dose: Not Given Hydrochlorothiazide (Hydrochlorothiazide) 25 mg PO DAILY [facility] Last Admin: 12/26/16 10:21 Dose: Not Given Hydromorphone HCl (Dilaudid) 1 mg IVPUSH Q4H PRN PRN Reason: Pain (moderate 4-6) Last Admin: 12/23/16 20:54 Dose: 1 mg Insulin Aspart (Novolog) 0 unit SUBCUT QIDACANDBED [facility] PRN Reason: Protocol Last Admin: 12/26/16 10:41 Dose: Not Given Loperamide HCl (Imodium) 2 mg PO Q4H PRN PRN Reason: diarrhea Last Admin: 12/25/16 21:05 Dose: 2 mg Megestrol Acetate (Megace 40 Mg/Ml Susp) 400 mg PO DAILY [facility] Last Admin: 12/26/16 10:22 Dose: Not Given Metoprolol Tartrate (Lopressor) 50 mg PO BID@0900,1800 [facility] Last Admin: 12/26/16 10:21 Dose: Not Given Miscellaneous Information (Remove Patch) 0 ea TRDERM Q72H [facility] (Pravastatin 20 Mg (Tab)*Pt Own Med*) 10 mg PO BEDTIME [facility] Last Admin: 12/25/16 21:06 Dose: 10 mg Ondansetron HCl (Zofran) 4 mg IVPUSH Q8H PRN PRN Reason: Nausea/Vomiting Last Admin: 12/25/16 15:15 Dose: 4 mg Oxycodone HCl (Oxycodone) 10 mg PO TID PRN PRN Reason: PAIN Last Admin: 12/26/16 02:58 Dose: 10 mg Sodium Chloride (Saline Flush) 10 ml FLUSH ASDIRECTED PRN PRN Reason: Keep Vein Open Last Admin: 12/23/16 12:39 Dose: 10 ml [facility] Last Admin: 12/26/16 10:21 Dose: Not Given Temazepam (Restoril) 7.5 mg PO BEDTIME PRN PRN Reason: Insomnia Discontinued Medications Enalapril Maleate (Vasotec) 2.5 mg PO DAILY [facility] Last Admin: 12/25/16 10:11 Dose: Not Given Glipizide (Glucotrol) 10 mg PO TID [facility] Last Admin: 12/25/16 21:05 Dose: 10 mg Sodium Chloride (Normal Saline) 1,000 mls @ 50 mls/hr IV ASDIRECTED [facility] Last Admin: 12/25/16 07:05 Dose: 50 mls/hr Insulin Aspart (Novolog) 0 unit SUBCUT QIDACANDBED [facility] PRN Reason: Protocol Lidocaine HCl (Xylocaine 2% Jelly) 10 ml MUCMEM ONETIME ONE Stop: 12/25/16 20:20 Last Admin: 12/26/16 10:21 Dose: Not Given Lidocaine HCl (Xylocaine 2% Jelly) Confirm Administered Dose 10 ml .ROUTE .STK- MED ONE Stop: 12/25/16 20:27 Last Admin: 12/26/16 08:09 Dose: Not Given Loperamide HCl (Imodium) 4 mg PO NOW ONE Stop: 12/24/16 18:09 Last Admin: 12/24/16 18:28 Dose: 4 mg Loperamide HCl (Imodium) 2 mg PO Q4H PRN PRN Reason: Diarrhea Metoprolol Tartrate (Lopressor) 50 mg PO DAILY [facility] Metoprolol Tartrate (Lopressor) 50 mg PO BID [facility] Last Admin: 12/25/16 10:09 Dose: Not Given (Pravastatin 20 Mg)* (Pt Own Med*) 20 mg PO BEDTIME [facility] Senna/Docusate Sodium (Senna Plus) 1 tab PO DAILY [facility] Last Admin: 12/25/16 10:11 Dose: Not Given - Exam Quality Assessment: supplemental oxygen General: mild distress HEENT: Mucous membr. 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 SNOMED Code(s): 097318116, 582964147 Code(s): C34.90 - MALIGNANT NEOPLASM OF UNSP PART OF UNSP BRONCHUS OR LUNG Status: Chronic Priority: High Current Visit: Yes Qualifiers: Laterality: unspecified laterality Qualified Code(s): C34.90 - Malignant neoplasm of unspecified part of unspecified bronchus or lung (3) Malnutrition SNOMED Code(s): 5054021 Code(s): E46 - UNSPECIFIED PROTEIN-CALORIE MALNUTRITION Status: Acute Priority: High Current Visit: Yes (4) Diarrhea SNOMED Code(s): 17176884 Code(s): R19.7 - DIARRHEA, UNSPECIFIED Status: Resolved Priority: High Current Visit: Yes - Problem List Review Problem List Initiated/Reviewed/Updated: Yes - My Orders Last 24 Hours: My Active Orders 12/26/16 11:30 fentaNYL [Duragesic] 12 mcg TRDERM Q72H 12/29/16 11:30 Remove Patch 0 ea TRDERM Q72H - Plan Plan:: Impression: Comfort care for Lung CA, stage IV -DNR/DNI -Family/Son/POA in agreement to no further interventions; request no IV, no melissa catheter for retention; keep patient as comfortable as possible -Will try fentanyl patch for pain control Failure to thrive -As noted above; comfort care Chronic CAD COPD CHF Hyperlipidemia Diabetes mellitus, type II Plan: SNF placement--SW working diligently with family for applications/placement options. Home Meds- PO if able and alert to swallow DVT/GI prophylaxis CM/SW for assist with DC planning as above; plan for SNF/NH placement for comfort care vs hospice care- SW to discuss with family Patient with significant decline in past 24+ hours. <Sandhya Palm - Last Filed: 12/26/16 16:46> - Patient Data Vitals - most recent: Last Vital Signs Temp 36.4 C 12/26/16 07:47 Pulse 161 H 12/26/16 07:47 Resp 14 12/26/16 07:47 BP 118/87 12/26/16 07:47 Pulse Ox 87 L 12/26/16 09:36 I&O - last 24 hours: Intake & Output 12/26/16 12/26/16 12/26/16 06:59 14:59 22:59 Intake Total 75 0 150 Output Total 275 Balance -200 0 150 Lab Results last 24 hrs: Laboratory Results - last 24 hr 12/25/16 12/26/16 12/26/16 Range/Units 20:59 06:54 13:35 POC Glucose 399 H 185 H 346 H (83-110) mg/dL 12/26/16 Range/Units 16:21 POC Glucose 243 H (83-110) mg/dL Med Orders - Current: Current Medications Albuterol/Ipratropium (Duoneb 3.0-0.5 Mg/3 Ml) 3 ml NEB QIDRT [facility] Last Admin: 12/26/16 15:42 Dose: 3 ml Amlodipine Besylate (Norvasc) 5 mg PO DAILY [facility] Last Admin: 12/26/16 10:22 Dose: Not Given Aspirin (Halfprin) 81 mg PO DAILY [facility] Last Admin: 12/26/16 10:21 Dose: Not Given Benzocaine/Menthol (Cepacol Sore Throat) 1 lozenge MUCMEM Q2HR PRN PRN Reason: Sore Throat Dextrose/Water (Dextrose 50% In Water) 50 ml IVPUSH ASDIRECTED PRN PRN Reason: Hypoglycemia Enalapril Maleate (Vasotec) 2.5 mg PO DAILY@2100 [facility] Last Admin: 12/25/16 21:05 Dose: Not Given Fentanyl (Duragesic) 12 mcg TRDERM Q72H [facility] Last Admin: 12/26/16 11:34 Dose: 12 mcg Glipizide (Glucotrol) 10 mg PO TIDAC [facility] Last Admin: 12/26/16 16:04 Dose: Not Given Hydrochlorothiazide (Hydrochlorothiazide) 25 mg PO DAILY [facility] Last Admin: 12/26/16 10:21 Dose: Not Given Hydromorphone HCl (Dilaudid) 1 mg IVPUSH Q4H PRN PRN Reason: Pain (moderate 4-6) Last Admin: 06/23/17 20:54 Dose: 1 mg Insulin Aspart (Novolog) 0 unit SUBCUT QIDACANDBED [facility] PRN Reason: Protocol Last Admin: 12/26/16 16:22 Dose: 4 units Loperamide HCl (Imodium) 2 mg PO Q4H PRN PRN Reason: diarrhea Last Admin: 12/25/16 21:05 Dose: 2 mg Megestrol Acetate (Megace 40 Mg/Ml Susp) 400 mg PO DAILY [facility] Last Admin: 12/26/16 10:22 Dose: Not Given Metoprolol Tartrate (Lopressor) 50 mg PO BID@0900,1800 [facility] Last Admin: 12/26/16 10:21 Dose: Not Given Miscellaneous Information (Remove Patch) 0 ea TRDERM Q72H [facility] Morphine Sulfate (Morphine 10 Mg/0.5 Ml Oral Syringe) 10 mg SL Q4H PRN PRN Reason: Pain (Pravastatin 20 Mg (Tab)*Pt Own Med*) 10 mg PO BEDTIME [facility] Last Admin: 12/25/16 21:06 Dose: 10 mg Ondansetron HCl (Zofran) 4 mg IVPUSH Q8H PRN PRN Reason: Nausea/Vomiting Last Admin: 12/25/16 15:15 Dose: 4 mg Oxycodone HCl (Oxycodone) 10 mg PO TID PRN PRN Reason: PAIN Last Admin: 12/26/16 02:58 Dose: 10 mg Sodium Chloride (Saline Flush) 10 ml FLUSH ASDIRECTED PRN PRN Reason: Keep Vein Open Last Admin: 12/23/16 12:39 Dose: 10 ml Tamsulosin HCl (Flomax) 0.4 mg PO BIDPC [facility] Last Admin: 12/26/16 10:21 Dose: Not Given Temazepam (Restoril) 7.5 mg PO BEDTIME PRN PRN Reason: Insomnia Discontinued Medications Enalapril Maleate (Vasotec) 2.5 mg PO DAILY [facility] Last Admin: 12/25/16 10:11 Dose: Not Given Glipizide (Glucotrol) 10 mg PO TID [facility] Last Admin: 12/25/16 21:05 Dose: 10 mg Sodium Chloride (Normal Saline) 1,000 mls @ 50 mls/hr IV ASDIRECTED [facility] Last Admin: 12/25/16 07:05 Dose: 50 mls/hr Insulin Aspart (Novolog) 0 unit SUBCUT QIDACANDBED [facility] PRN Reason: Protocol Lidocaine HCl (Xylocaine 2% Jelly) 10 ml MUCMEM ONETIME ONE Stop: 12/25/16 20:20 Last Admin: 12/26/16 10:21 Dose: Not Given Lidocaine HCl (Xylocaine 2% Jelly) Confirm Administered Dose 10 ml .ROUTE .STK- MED ONE Stop: 12/25/16 20:27 Last Admin: 12/26/16 08:09 Dose: Not Given Loperamide HCl (Imodium) 4 mg PO NOW ONE Stop: 12/24/16 18:09 Last Admin: 12/24/16 18:28 Dose: 4 mg Loperamide HCl (Imodium) 2 mg PO Q4H PRN PRN Reason: Diarrhea Metoprolol Tartrate (Lopressor) 50 mg PO DAILY [facility] Metoprolol Tartrate (Lopressor) 50 mg PO BID [facility] Last Admin: 12/25/16 10:09 Dose: Not Given Morphine Sulfate (Morphine 10 Mg/0.5 Ml Oral Syringe) 10 mg PO Q4H PRN PRN Reason: Pain Last Admin: 12/26/16 15:27 Dose: 10 mg (Pravastatin 20 Mg)* (Pt Own Med*) 20 mg PO BEDTIME [facility] Senna/Docusate Sodium (Senna Plus) 1 tab PO DAILY [facility] Last Admin: 12/25/16 10:11 Dose: Not Given - Problem List & Annotations (1) Lung cancer, primary, 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 SNOMED Code(s): 689024369, 702824245 Code(s): C34.90 - MALIGNANT NEOPLASM OF UNSP PART OF UNSP BRONCHUS OR LUNG Status: Chronic Priority: High Current Visit: Yes Qualifiers: Laterality: unspecified laterality Qualified Code(s): C34.90 - Malignant neoplasm of unspecified part of unspecified bronchus or lung (2) Failure to thrive in adult SNOMED Code(s): 634168610 Code(s): R62.7 - ADULT FAILURE TO THRIVE Status: Acute Priority: High Current Visit: Yes (3) Malnutrition SNOMED Code(s): 9900748 Code(s): E46 - UNSPECIFIED PROTEIN-CALORIE MALNUTRITION Status: Acute Priority: High Current Visit: Yes (4) Diarrhea SNOMED Code(s): 91355093 Code(s): R19.7 - DIARRHEA, UNSPECIFIED Status: Resolved Priority: High Current Visit: Yes - My Orders Last 24 Hours: My Active Orders 12/25/16 18:00 Metoprolol Tartrate [Lopressor] 50 mg PO BID@0900,1800 Tamsulosin [Flomax] 0.4 mg PO BIDPC 12/25/16 19:58 Benzocaine/Cetylpyrd/Menthol [Cepacol Sore Throat] 1 lozenge MUCMEM Q2HR PRN 12/25/16 21:00 Enalapril [Vasotec] 2.5 mg PO DAILY@2100 12/25/16 22:45 Insulin Aspart [NovoLOG] 0 unit SUBCUT QIDACANDBED 12/26/16 07:00 glipiZIDE [Glucotrol] 10 mg PO TIDAC 12/26/16 08:00 Consult to Occupational Therapy [OT Evaluation and Treatment] [CONS] Routine 12/26/16 09:00 Consult to Physical Therapy [PT Evaluation and Treatment] [CONS] Routine 12/26/16 12:00 Accu Check [Blood Glucose Check, Bedside] [RC] QIDACANDBED 12/26/16 15:31 Morphine [Morphine 10 MG/0.5 ML Oral Syringe] 10 mg SL Q4H PRN - Plan Plan:: Observation admission originally for placement prolonged without IV, and limited pain control; need to establish plan of care ie continue Comfort Care cf Hospice.
[2016-12-26] MEDS ORDERED: Morphine 10 MG/0.5 ML Oral Syringe PO PRN (15:21)
[2016-12-26] MEDS ORDERED: Morphine 10 MG/0.5 ML Oral Syringe SL PRN (15:31)
[2016-12-27] MEDS: Albuterol/Ipratropium 3.0-0.5 MG/3 ML Neb Soln NEB SCH ×2 (05:05→09:23)
[2016-12-27 07:58] VITALS: BP 94/43
--- NOTE | 2016-12-27 09:34 | PCM.PN ---
<Miley Wong M - Last Filed: 12/27/16 14:16> - General Info Date of Service: 12/27/16 Admission Dx/Problem (Free Text): Admission Diagnosis/Problem Admission Diagnosis/Problem Failure to thrive in adult Patient is awake and able to answer questions today but is very weak, not taking anything in PO. Denies c/o pain when asked. Fentanyl patch has been helpful to control pain, also using PO morphine drops PRN for breakthrough. Son has been at bedside. - Review of Systems General: Reports: Weakness, Fatigue. Denies: Appetite (decreased to minimal) Neurological: Reports: Other (lethargic) Systems Review Comment:: ROS unable to obtain due to mental status - Patient Data Vitals - most recent: Last Vital Signs Temp 98.2 F 12/27/16 07:51 Pulse 119 H 12/27/16 07:51 Resp 20 12/27/16 07:51 BP 94/43 L 12/27/16 07:51 Pulse Ox 79 L 12/27/16 09:23 Weight - most recent: 62.051 kg I&O - last 24 hours: Intake & Output 12/26/16 12/27/16 12/27/16 22:59 06:59 14:59 Intake Total 150 Balance 150 Lab Results last 24 hrs: Laboratory Results - last 24 hr 12/26/16 12/26/16 12/26/16 Range/Units 13:35 16:21 20:38 POC Glucose 346 H 243 H 208 H (83-110) mg/dL Med Orders - Current: Current Medications Albuterol/Ipratropium (Duoneb 3.0-0.5 Mg/3 Ml) 3 ml NEB QIDRT [facility] Last Admin: 12/27/16 09:23 Dose: 3 ml Amlodipine Besylate (Norvasc) 5 mg PO DAILY [facility] Last Admin: 12/26/16 10:22 Dose: Not Given Aspirin (Halfprin) 81 mg PO DAILY [facility] Last Admin: 12/26/16 10:21 Dose: Not Given Benzocaine/Menthol (Cepacol Sore Throat) 1 lozenge MUCMEM Q2HR PRN PRN Reason: Sore Throat Enalapril Maleate (Vasotec) 2.5 mg PO DAILY@2100 [facility] Last Admin: 12/25/16 21:05 Dose: Not Given Fentanyl (Duragesic) 12 mcg TRDERM Q72H [facility] Last Admin: 12/26/16 11:34 Dose: 12 mcg Glipizide (Glucotrol) 10 mg PO TIDAC [facility] Last Admin: 12/26/16 16:04 Dose: Not Given Hydrochlorothiazide (Hydrochlorothiazide) 25 mg PO DAILY [facility] Last Admin: 12/26/16 10:21 Dose: Not Given Loperamide HCl (Imodium) 2 mg PO Q4H PRN PRN Reason: diarrhea Last Admin: 12/25/16 21:05 Dose: 2 mg Megestrol Acetate (Megace 40 Mg/Ml Susp) 400 mg PO DAILY [facility] Last Admin: 12/26/16 10:22 Dose: Not Given Metoprolol Tartrate (Lopressor) 50 mg PO BID@0900,1800 [facility] Last Admin: 12/26/16 17:00 Dose: Not Given Miscellaneous Information (Remove Patch) 0 ea TRDERM Q72H [facility] Morphine Sulfate (Morphine 10 Mg/0.5 Ml Oral Syringe) 10 mg SL Q4H PRN PRN Reason: Pain (Pravastatin 20 Mg (Tab)*Pt Own Med*) 10 mg PO BEDTIME [facility] Last Admin: 12/25/16 21:06 Dose: 10 mg Oxycodone HCl (Oxycodone) 10 mg PO TID PRN PRN Reason: PAIN Last Admin: 12/26/16 02:58 Dose: 10 mg Tamsulosin HCl (Flomax) 0.4 mg PO BIDPC [facility] Last Admin: 12/26/16 17:00 Dose: Not Given Temazepam (Restoril) 7.5 mg PO BEDTIME PRN PRN Reason: Insomnia Discontinued Medications Dextrose/Water (Dextrose 50% In Water) 50 ml IVPUSH ASDIRECTED PRN PRN Reason: Hypoglycemia Enalapril Maleate (Vasotec) 2.5 mg PO DAILY [facility] Last Admin: 12/25/16 10:11 Dose: Not Given Glipizide (Glucotrol) 10 mg PO TID [facility] Last Admin: 12/25/16 21:05 Dose: 10 mg Hydromorphone HCl (Dilaudid) 1 mg IVPUSH Q4H PRN PRN Reason: Pain (moderate 4-6) Last Admin: 12/23/16 20:54 Dose: 1 mg Sodium Chloride (Normal Saline) 1,000 mls @ 50 mls/hr IV ASDIRECTED [facility] Last Admin: 12/25/16 07:05 Dose: 50 mls/hr Insulin Aspart (Novolog) 0 unit SUBCUT QIDACANDBED [facility] PRN Reason: Protocol Insulin Aspart (Novolog) 0 unit SUBCUT QIDACANDBED [facility] PRN Reason: Protocol Last Admin: 12/26/16 16:22 Dose: 4 units Lidocaine HCl (Xylocaine 2% Jelly) 10 ml MUCMEM ONETIME ONE Stop: 12/25/16 20:20 Last Admin: 12/26/16 10:21 Dose: Not Given Lidocaine HCl (Xylocaine 2% Jelly) Confirm Administered Dose 10 ml .ROUTE .STK- MED ONE Stop: 12/25/16 20:27 Last Admin: 12/26/16 08:09 Dose: Not Given Loperamide HCl (Imodium) 4 mg PO NOW ONE Stop: 12/24/16 18:09 Last Admin: 12/24/16 18:28 Dose: 4 mg Loperamide HCl (Imodium) 2 mg PO Q4H PRN PRN Reason: Diarrhea Metoprolol Tartrate (Lopressor) 50 mg PO DAILY [facility] Metoprolol Tartrate (Lopressor) 50 mg PO BID [facility] Last Admin: 12/25/16 10:09 Dose: Not Given Morphine Sulfate (Morphine 10 Mg/0.5 Ml Oral Syringe) 10 mg PO Q4H PRN PRN Reason: Pain Last Admin: 12/26/16 15:27 Dose: 10 mg (Pravastatin 20 Mg)* (Pt Own Med*) 20 mg PO BEDTIME [facility] Ondansetron HCl (Zofran) 4 mg IVPUSH Q8H PRN PRN Reason: Nausea/Vomiting Last Admin: 12/25/16 15:15 Dose: 4 mg Senna/Docusate Sodium (Senna Plus) 1 tab PO DAILY [facility] Last Admin: 12/25/16 10:11 Dose: Not Given Sodium Chloride (Saline Flush) 10 ml FLUSH ASDIRECTED PRN PRN Reason: Keep Vein Open Last Admin: 12/23/16 12:39 Dose: 10 ml - Exam Quality Assessment: supplemental oxygen General: no acute distress HEENT: Pupils equal, Pupils reactive, EOMI, Mucous membr. 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 SNOMED Code(s): 088023776, 237395399 Code(s): C34.90 - MALIGNANT NEOPLASM OF UNSP PART OF UNSP BRONCHUS OR LUNG Status: Chronic Priority: High Current Visit: Yes Qualifiers: Laterality: unspecified laterality Qualified Code(s): C34.90 - Malignant neoplasm of unspecified part of unspecified bronchus or lung (3) Malnutrition SNOMED Code(s): 7927489 Code(s): E46 - UNSPECIFIED PROTEIN-CALORIE MALNUTRITION Status: Acute Priority: High Current Visit: Yes (4) Diarrhea SNOMED Code(s): 60359301 Code(s): R19.7 - DIARRHEA, UNSPECIFIED Status: Resolved Priority: High Current Visit: Yes - Problem List Review Problem List Initiated/Reviewed/Updated: Yes - My Orders Last 24 Hours: My Active Orders 12/26/16 11:30 fentaNYL [Duragesic] 12 mcg TRDERM Q72H 12/29/16 11:30 Remove Patch 0 ea TRDERM Q72H - Plan Plan:: Impression: Comfort care for Lung CA, stage IV -DNR/DNI -Family/Son/POA in agreement to no further interventions; request no IV, no melissa catheter for retention; keep patient as comfortable as possible -Will try fentanyl patch for pain control Urinary retention -Family defers straight cath as "no interventions". -Attempts to educate re: emptying bladder for comfort, continue to refuse Failure to thrive -As noted above; comfort care Chronic CAD COPD CHF Hyperlipidemia Diabetes mellitus, type II Plan: SNF placement--SW working diligently with family for applications/placement options. Home Meds- PO if able and alert to swallow DVT/GI prophylaxis CM/SW for assist with DC planning as above; plan for SNF/NH placement for comfort care vs hospice care- SW to discuss with family Patient with significant decline in past 24+ hours. Observation admission originally for placement prolonged without IV, and limited pain control; need to establish plan of care ie continue Comfort Care cf Hospice. <Sandhya Palm M - Last Filed: 12/27/16 15:12> - Patient Data Vitals - most recent: Last Vital Signs Temp 36.8 C 12/27/16 07:51 Pulse 119 H 12/27/16 07:51 Resp 20 12/27/16 07:51 BP 94/43 L 12/27/16 07:51 Pulse Ox 79 L 12/27/16 09:23 Lab Results last 24 hrs: Laboratory Results - last 24 hr 12/26/16 12/26/16 Range/Units 16:21 20:38 POC Glucose 243 H 208 H (83-110) mg/dL Med Orders - Current: Current Medications Albuterol/Ipratropium (Duoneb 3.0-0.5 Mg/3 Ml) 3 ml NEB QIDRT [facility] Last Admin: 12/27/16 09:23 Dose: 3 ml Amlodipine Besylate (Norvasc) 5 mg PO DAILY [facility] Last Admin: 12/26/16 10:22 Dose: Not Given Aspirin (Halfprin) 81 mg PO DAILY [facility] Last Admin: 12/26/16 10:21 Dose: Not Given Benzocaine/Menthol (Cepacol Sore Throat) 1 lozenge MUCMEM Q2HR PRN PRN Reason: Sore Throat Enalapril Maleate (Vasotec) 2.5 mg PO DAILY@2100 [facility] Last Admin: 12/25/16 21:05 Dose: Not Given Fentanyl (Duragesic) 12 mcg TRDERM Q72H [facility] Last Admin: 12/26/16 11:34 Dose: 12 mcg Glipizide (Glucotrol) 10 mg PO TIDAC [facility] Last Admin: 12/26/16 16:04 Dose: Not Given Hydrochlorothiazide (Hydrochlorothiazide) 25 mg PO DAILY [facility] Last Admin: 12/26/16 10:21 Dose: Not Given Loperamide HCl (Imodium) 2 mg PO Q4H PRN PRN Reason: diarrhea Last Admin: 12/25/16 21:05 Dose: 2 mg Megestrol Acetate (Megace 40 Mg/Ml Susp) 400 mg PO DAILY [facility] Last Admin: 12/26/16 10:22 Dose: Not Given Metoprolol Tartrate (Lopressor) 50 mg PO BID@0900,1800 [facility] Last Admin: 12/26/16 17:00 Dose: Not Given Miscellaneous Information (Remove Patch) 0 ea TRDERM Q72H [facility] Morphine Sulfate (Morphine 10 Mg/0.5 Ml Oral Syringe) 10 mg SL Q4H PRN PRN Reason: Pain Last Admin: 12/27/16 13:16 Dose: 10 mg (Pravastatin 20 Mg (Tab)*Pt Own Med*) 10 mg PO BEDTIME [facility] Last Admin: 12/25/16 21:06 Dose: 10 mg Oxycodone HCl (Oxycodone) 10 mg PO TID PRN PRN Reason: PAIN Last Admin: 12/26/16 02:58 Dose: 10 mg Tamsulosin HCl (Flomax) 0.4 mg PO BIDPC [facility] Last Admin: 12/26/16 17:00 Dose: Not Given Temazepam (Restoril) 7.5 mg PO BEDTIME PRN PRN Reason: Insomnia Discontinued Medications Dextrose/Water (Dextrose 50% In Water) 50 ml IVPUSH ASDIRECTED PRN PRN Reason: Hypoglycemia Enalapril Maleate (Vasotec) 2.5 mg PO DAILY [facility] Last Admin: 12/25/16 10:11 Dose: Not Given Glipizide (Glucotrol) 10 mg PO TID [facility] Last Admin: 12/25/16 21:05 Dose: 10 mg Hydromorphone HCl (Dilaudid) 1 mg IVPUSH Q4H PRN PRN Reason: Pain (moderate 4-6) Last Admin: 12/23/16 20:54 Dose: 1 mg Sodium Chloride (Normal Saline) 1,000 mls @ 50 mls/hr IV ASDIRECTED [facility] Last Admin: 12/25/16 07:05 Dose: 50 mls/hr Insulin Aspart (Novolog) 0 unit SUBCUT QIDACANDBED [facility] PRN Reason: Protocol Insulin Aspart (Novolog) 0 unit SUBCUT QIDACANDBED [facility] PRN Reason: Protocol Last Admin: 12/26/16 16:22 Dose: 4 units Lidocaine HCl (Xylocaine 2% Jelly) 10 ml MUCMEM ONETIME ONE Stop: 12/25/16 20:20 Last Admin: 12/26/16 10:21 Dose: Not Given Lidocaine HCl (Xylocaine 2% Jelly) Confirm Administered Dose 10 ml .ROUTE .STK- MED ONE Stop: 12/25/16 20:27 Last Admin: 12/26/16 08:09 Dose: Not Given Loperamide HCl (Imodium) 4 mg PO NOW ONE Stop: 12/24/16 18:09 Last Admin: 12/24/16 18:28 Dose: 4 mg Loperamide HCl (Imodium) 2 mg PO Q4H PRN PRN Reason: Diarrhea Metoprolol Tartrate (Lopressor) 50 mg PO DAILY [facility] Metoprolol Tartrate (Lopressor) 50 mg PO BID [facility] Last Admin: 12/25/16 10:09 Dose: Not Given Morphine Sulfate (Morphine 10 Mg/0.5 Ml Oral Syringe) 10 mg PO Q4H PRN PRN Reason: Pain Last Admin: 12/26/16 15:27 Dose: 10 mg (Pravastatin 20 Mg)* (Pt Own Med*) 20 mg PO BEDTIME [facility] Ondansetron HCl (Zofran) 4 mg IVPUSH Q8H PRN PRN Reason: Nausea/Vomiting Last Admin: 12/25/16 15:15 Dose: 4 mg Senna/Docusate Sodium (Senna Plus) 1 tab PO DAILY [facility] Last Admin: 12/25/16 10:11 Dose: Not Given Sodium Chloride (Saline Flush) 10 ml FLUSH ASDIRECTED PRN PRN Reason: Keep Vein Open Last Admin: 12/23/16 12:39 Dose: 10 ml - Problem List & Annotations (1) Lung cancer, primary, 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 SNOMED Code(s): 982140418, 453464154 Code(s): C34.90 - MALIGNANT NEOPLASM OF UNSP PART OF UNSP BRONCHUS OR LUNG Status: Chronic Priority: High Current Visit: Yes Qualifiers: Laterality: unspecified laterality Qualified Code(s): C34.90 - Malignant neoplasm of unspecified part of unspecified bronchus or lung (2) Failure to thrive in adult SNOMED Code(s): 874165143 Code(s): R62.7 - ADULT FAILURE TO THRIVE Status: Acute Priority: High Current Visit: Yes (3) Malnutrition SNOMED Code(s): 9356345 Code(s): E46 - UNSPECIFIED PROTEIN-CALORIE MALNUTRITION Status: Acute Priority: High Current Visit: Yes (4) Diarrhea SNOMED Code(s): 44207441 Code(s): R19.7 - DIARRHEA, UNSPECIFIED Status: Resolved Priority: High Current Visit: Yes - Problem List Review Problem List Initiated/Reviewed/Updated: Yes - My Orders Last 24 Hours: My Active Orders 12/26/16 15:31 Morphine [Morphine 10 MG/0.5 ML Oral Syringe] 10 mg SL Q4H PRN 12/26/16 21:33 Oxygen Therapy Adult [Oxygen Therapy] [RC] ASDIRECTED - Plan Plan:: Suggest change of status to hospice care.
--- NOTE | 2016-12-27 14:26 | PCM.SN ---
- Free Text/Narrative Note: Nursing summoned this provider to patient's room. AICD has been firing at least 8 times in the past 15 minutes. Discussion with son re: deactivating AICD with magnet on chest, reviewed explaination of course of possible outcomes/events including cardiac arrest and . Son wishes to proceed with deactivation. Magnet was placed on patients chest/AICD, he began agonal breathing and was unresponsive, over the next 5 minutes respirations slowed, stopped. No HR auscultated. Time of is 1349. Son did not wish to be in room during this time. He was notified of time of , spiritual care and SW present to comfort son.
--- NOTE | 2016-12-30 09:55 | PCM.DCSUM1 ---
Discharge Summary - Discharge Data Discharge Date: 12/27/16 Discharge Disposition: 20 Condition: Good - Discharge Diagnosis/Problem(s) (1) Failure to thrive in adult SNOMED Code(s): 947219495 ICD Code: R62.7 - ADULT FAILURE TO THRIVE Status: Acute Priority: High (2) Lung cancer, primary, 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 SNOMED Code(s): 623818296, 450625082 ICD Code: C34.90 - MALIGNANT NEOPLASM OF UNSP PART OF UNSP BRONCHUS OR LUNG Status: Chronic Priority: High Qualifiers: Laterality: unspecified laterality Qualified Code(s): C34.90 - Malignant neoplasm of unspecified part of unspecified bronchus or lung (3) Malnutrition SNOMED Code(s): 8681325 ICD Code: E46 - UNSPECIFIED PROTEIN-CALORIE MALNUTRITION Status: Acute Priority: High (4) Diarrhea SNOMED Code(s): 89127794 ICD Code: R19.7 - DIARRHEA, UNSPECIFIED Status: Resolved Priority: High - Patient Summary/Data Operative Procedure(s) Performed: None Complications: None Consults: Consultations 12/26/16 08:00 Consult to Occupational Therapy [OT Evaluation and Treatment] [CONS] Routine 12/26/16 09:00 Consult to Physical Therapy [PT Evaluation and Treatment] [CONS] Routine Labs Pending at D/C: N/A Recommended Follow-up Testing/Procedures: N/A Planned Operative Procedure(s) after DC: N/A Hospital Course: Comfort Cares; SW was working on DC plan to [place] with hospice vs comfort care. Patient had a slow steady decline. AICD began to fire. Son/POA wished/requested for the AICD to be inactivated. Magnet was placed over AICD, within 5-10 minutes patient passed peacefully. Spiritual care was present. Son elected not to be present in room during this process. - Discharge Plan Home Medications: Home Meds Aspirin [Halfprin] 81 mg PO DAILY 04/07/15 [History] Enalapril [Vasotec] 2.5 mg PO DAILY 04/07/15 [History] Hydrochlorothiazide 25 mg PO DAILY 04/07/15 [History] Metoprolol Tartrate [Lopressor] 50 mg PO BID 04/07/15 [History] Pravastatin [Pravachol] 10 mg PO DAILY 04/07/15 [History] amLODIPine [Norvasc] 5 mg PO DAILY 04/07/15 [History] Albuterol/Ipratropium [DuoNeb 3.0-0.5 MG/3 ML] 3 ml NEB QIDRT 30 Days 04/10/15 [ Rx] Sennosides/Docusate Sodium [Jessica-Colace] 1 tab PO DAILY 12/23/16 [History] oxyCODONE HCl [Oxycodone HCl] 10 mg PO TID PRN 12/23/16 [History] glipiZIDE [Glucotrol] 10 mg PO TID 12/24/16 [History] Patient Handouts: Bone Metastasis, Lung Cancer, Failure to Thrive, Adult, Easy- to-Read Forms: ED Department Discharge Referrals: PCP,Unknown [Primary Care Provider] - - Discharge Summary/Plan Comment DC Time >30 min.: No - General Info Date of Service: 12/27/16 Subjective Update: See prior note done with ROS and PE for date of discharge 12/27/16 for details. - Patient Data Vitals - Most Recent: Last Vital Signs Temp 98.2 F 12/27/16 07:51 Pulse 119 H 12/27/16 07:51 Resp 20 12/27/16 07:51 BP 94/43 L 12/27/16 07:51 Pulse Ox 79 L 12/27/16 09:23 Weight - Most Recent: 136 lb 12.8 oz Med Orders - Current: Current Medications Discontinued Medications Albuterol/Ipratropium (Duoneb 3.0-0.5 Mg/3 Ml) 3 ml NEB QIDRT [facility] Last Admin: 12/27/16 09:23 Dose: 3 ml Amlodipine Besylate (Norvasc) 5 mg PO DAILY [facility] Last Admin: 12/26/16 10:22 Dose: Not Given Aspirin (Halfprin) 81 mg PO DAILY [facility] Last Admin: 12/26/16 10:21 Dose: Not Given Benzocaine/Menthol (Cepacol Sore Throat) 1 lozenge MUCMEM Q2HR PRN PRN Reason: Sore Throat Dextrose/Water (Dextrose 50% In Water) 50 ml IVPUSH ASDIRECTED PRN PRN Reason: Hypoglycemia Enalapril Maleate (Vasotec) 2.5 mg PO DAILY [facility] Last Admin: 12/25/16 10:11 Dose: Not Given Enalapril Maleate (Vasotec) 2.5 mg PO DAILY@2100 [facility] Last Admin: 12/25/16 21:05 Dose: Not Given Fentanyl (Duragesic) 12 mcg TRDERM Q72H [facility] Last Admin: 12/26/16 11:34 Dose: 12 mcg Glipizide (Glucotrol) 10 mg PO TID [facility] Last Admin: 12/25/16 21:05 Dose: 10 mg Glipizide (Glucotrol) 10 mg PO TIDAC [facility] Last Admin: 12/26/16 16:04 Dose: Not Given Hydrochlorothiazide (Hydrochlorothiazide) 25 mg PO DAILY [facility] Last Admin: 12/26/16 10:21 Dose: Not Given Hydromorphone HCl (Dilaudid) 1 mg IVPUSH Q4H PRN PRN Reason: Pain (moderate 4-6) Last Admin: 12/23/16 20:54 Dose: 1 mg Sodium Chloride (Normal Saline) 1,000 mls @ 50 mls/hr IV ASDIRECTED [facility] Last Admin: 12/25/16 07:05 Dose: 50 mls/hr Insulin Aspart (Novolog) 0 unit SUBCUT QIDACANDBED [facility] PRN Reason: Protocol Insulin Aspart (Novolog) 0 unit SUBCUT QIDACANDBED [facility] PRN Reason: Protocol Last Admin: 12/26/16 16:22 Dose: 4 units Lidocaine HCl (Xylocaine 2% Jelly) 10 ml MUCMEM ONETIME ONE Stop: 12/25/16 20:20 Last Admin: 12/26/16 10:21 Dose: Not Given Lidocaine HCl (Xylocaine 2% Jelly) Confirm Administered Dose 10 ml .ROUTE .STK- MED ONE Stop: 12/25/16 20:27 Last Admin: 12/26/16 08:09 Dose: Not Given Loperamide HCl (Imodium) 4 mg PO NOW ONE Stop: 12/24/16 18:09 Last Admin: 12/24/16 18:28 Dose: 4 mg Loperamide HCl (Imodium) 2 mg PO Q4H PRN PRN Reason: diarrhea Last Admin: 12/25/16 21:05 Dose: 2 mg Loperamide HCl (Imodium) 2 mg PO Q4H PRN PRN Reason: Diarrhea Megestrol Acetate (Megace 40 Mg/Ml Susp) 400 mg PO DAILY [facility] Last Admin: 12/26/16 10:22 Dose: Not Given Metoprolol Tartrate (Lopressor) 50 mg PO DAILY [facility] Metoprolol Tartrate (Lopressor) 50 mg PO BID [facility] Last Admin: 12/25/16 10:09 Dose: Not Given Metoprolol Tartrate (Lopressor) 50 mg PO BID@0900,1800 [facility] Last Admin: 12/26/16 17:00 Dose: Not Given Miscellaneous Information (Remove Patch) 0 ea TRDERM Q72H [facility] Morphine Sulfate (Morphine 10 Mg/0.5 Ml Oral Syringe) 10 mg PO Q4H PRN PRN Reason: Pain Last Admin: 12/26/16 15:27 Dose: 10 mg Morphine Sulfate (Morphine 10 Mg/0.5 Ml Oral Syringe) 10 mg SL Q4H PRN PRN Reason: Pain Last Admin: 12/27/16 13:16 Dose: 10 mg (Pravastatin 20 Mg)* (Pt Own Med*) 20 mg PO BEDTIME [facility] (Pravastatin 20 Mg (Tab)*Pt Own Med*) 10 mg PO BEDTIME [facility] Last Admin: 12/25/16 21:06 Dose: 10 mg Ondansetron HCl (Zofran) 4 mg IVPUSH Q8H PRN PRN Reason: Nausea/Vomiting Last Admin: 12/25/16 15:15 Dose: 4 mg Oxycodone HCl (Oxycodone) 10 mg PO TID PRN PRN Reason: PAIN Last Admin: 12/26/16 02:58 Dose: 10 mg Senna/Docusate Sodium (Senna Plus) 1 tab PO DAILY [facility] Last Admin: 12/25/16 10:11 Dose: Not Given Sodium Chloride (Saline Flush) 10 ml FLUSH ASDIRECTED PRN PRN Reason: Keep Vein Open Last Admin: 12/23/16 12:39 Dose: 10 ml Tamsulosin HCl (Flomax) 0.4 mg PO BIDPC [facility] Last Admin: 12/26/16 17:00 Dose: Not Given Temazepam (Restoril) 7.5 mg PO BEDTIME PRN PRN Reason: Insomnia Comments:: See prior note done with ROS and PE for date of discharge 12/27/16 for details. *Q Meaningful Use (DIS) - VTE *Q VTE Criteria *Q: - Stroke *Q Stroke Criteria *Q: - AMI *Q AMI Criteria *Q:
== END 2016-12-27 13:49 | disposition expired ==
LOC: JD.ED 11:22 → JD.MS 15:36
PROVIDERS: ADMIT Internal Medicine Cardiovascular Disease; ATTEND Internal Medicine Cardiovascular Disease
DX: C34.90 Malignant neoplasm of unspecified part of unspecified bronchus or lung (principal); R62.7 Adult failure to thrive; C79.31 Secondary malignant neoplasm of brain; R53.1 Weakness; R63.0 Anorexia; I50.9 Heart failure, unspecified; E78.00 Pure hypercholesterolemia, unspecified; I10 Essential (primary) hypertension; I25.10 Atherosclerotic heart disease of native coronary artery without angina pectoris; J44.9 Chronic obstructive pulmonary disease, unspecified; E11.9 Type 2 diabetes mellitus without complications; Z87.891 Personal history of nicotine dependence; E46 Unspecified protein-calorie malnutrition; Z66 Do not resuscitate; Z68.22 Body mass index [BMI] 22.0-22.9, adult; Z79.82 Long term (current) use of aspirin; Z51.5 Encounter for palliative care; I48.91 Unspecified atrial fibrillation; Z86.73 Personal history of transient ischemic attack (TIA), and cerebral infarction without residual deficits; Z95.810 Presence of automatic (implantable) cardiac defibrillator; R33.9 Retention of urine, unspecified; R19.7 Diarrhea, unspecified; Z79.899 Other long term (current) drug therapy
CPT/HCPCS: 36415; 51798; 71020; 80053; 80306; 81001; 82962; 84484; 85025; 85610; 86140; 87493; 93005; 94640; 94664; 94760; 94761; 96361; 96374; 96375; 99285; A9270; G0378; J1170; J1815; J2405; J7040; J7050; 96360; 99284